=== PATIENT | male | born 1985 | race Caucasian/White ===

== ENCOUNTER 2018-03-17 04:53 | Emergency (ER) | payer OTHER ==
[~2018-03-17] VITALS: Ht 182.9 cm; Wt 127.0 kg
[2018-03-17 05:55] LABS: ABSOLUTE EOSINOPHILS 0.1 thou/uL (0.0-0.7); ABSOLUTE LYMPHOCYTES 2.1 thou/uL (0.8-5.3); ABSOLUTE MONOCYTES 0.8 thou/uL (0.0-1.2); ABSOLUTE NEUTROPHILS 3.6 thou/uL (1.6-8.1); BASOPHILS 0.6 %; EOSINOPHILS 0.9 %; HEMATOCRIT 41.5 % (42.0-52.0); HEMOGLOBIN 14.6 gm/dL (14.0-18.0); LYMPHOCYTES 32.3 %; MCH 30.4 pg (26.0-34.0); MCHC 35.1 g/dL (28.0-37.0); MCV 86.5 fL (80.0-100.0); MONOCYTES 11.5 %; MPV 7.2 fl. (7.2-11.1); NUCLEATED RBCS 0 /100WBC; PLATELET COUNT* 262 thou/uL (150-400); POLYS 54.7 %; RDW-CV 13.1 % (10.5-14.5); WBC 6.5 thou/uL (4.0-11.0)
[2018-03-17 06:02] LABS: POTASSIUM 3.5 mmol/L (3.5-5.1)
[2018-03-17 06:07] LABS: ALBUMIN 3.9 g/dL (3.4-5.0); TOTAL BILIRUBIN 0.6 mg/dL (<0.1-1.0); TOTAL PROTEIN 7.6 g/dL (6.4-8.2)
[2018-03-17] MEDS ORDERED: CEFDINIR300 MG PO (06:36)
[2018-03-17 07:04] VITALS: BP 114/71
== END 2018-03-17 06:54 | disposition home or self-care (01) ==
LOC: M.ERS 04:53
PROVIDERS: Personal Emergency Response Attendant
DX: K04.7 Periapical abscess without sinus (principal); Z88.1 Allergy status to other antibiotic agents; Z88.0 Allergy status to penicillin